=== PATIENT | female | born 1945 | race Caucasian/White ===

== ENCOUNTER 2020-02-09 13:23 | Inpatient (IN) | payer MEDICARE ==
[~2020-02-09] VITALS: Ht 152.4 cm; Wt 88.4 kg
[2020-02-09 14:20] LABS: BASOPHILS ABSOLUTE AUTO 0.07 K/mm3 (0.00-0.23); BASOPHILS PERCENT AUTO 1 % (0-2); EOSINOPHILS ABSOLUTE AUTO 0.26 K/mm3 (0.00-0.68); EOSINOPHILS PERCENT AUTO 3 % (0-6); Hematocrit 31.4 % (33.0-51.0); Hemoglobin 10.5 g/dL (11.5-16.0); IMMATURE GRAN ABSOLUTE AUTO 0.03 K/mm3 (0.00-0.10); IMMATURE GRAN PERCENT AUTO 0 % (0-1); LYMPHOCYTES ABSOLUTE AUTO 2.14 K/mm3 (0.84-5.20); LYMPHOCYTES PERCENT AUTO 20 % (21-46); MONOCYTES ABSOLUTE AUTO 0.73 K/mm3 (0.16-1.47); MONOCYTES PERCENT AUTO 7 % (4-13); Mean Corpuscular HGB 33.7 pg (26.0-34.0); Mean Corpuscular HGB Conc 33.4 g/dL (31.5-36.5); Mean Corpuscular Volume 101 fL (80-100); NEUTROPHILS ABSOLUTE AUTO 7.25 K/mm3 (1.96-9.15); NEUTROPHILS PERCENT AUTO 69 % (41-73); Platelet Count 199 K/mm3 (150-400); RDW Coefficient Variation 13.4 % (11.7-14.2); RDW Standard Deviation 48.8 fL (35.1-46.3); Red Blood Cell Count 3.12 M/mm3 (3.80-5.20); White Blood Cell Count 10.48 K/mm3 (4.00-11.30)
[2020-02-09 14:34] LABS: Albumin, Blood 3.3 g/dL (3.4-5.0); Albumin/Globulin Ratio 0.8 (0.8-1.8); Bilirubin, Total 0.4 mg/dL (0.1-1.0); Bun/Creatinine Ratio 11.4 (12.0-20.0); Calcium, Blood 9.7 mg/dL (8.5-10.1); Creatinine, Blood 4.11 mg/dL (0.40-1.00); Globulin, Blood 4.4 g/dL (2.2-4.0); Potassium, Blood 4.7 mmol/L (3.5-5.5); Total Protein, Blood 7.7 g/dL (6.4-8.2)
[2020-02-09] MEDS ORDERED: ATOR10 PO (15:11)
[2020-02-09] MEDS ORDERED: FUROSEMIDE40 MG PO (15:11)
[2020-02-09] MEDS ORDERED: Potassium Chlo20 ME1 PO (15:12)
[2020-02-09] MEDS ORDERED: CLON.1 PO (15:12)
[2020-02-09] MEDS ORDERED: Toprol Xl200 MG PO (15:12)
[2020-02-09] MEDS ORDERED: SPIRONOLACTONE25 MG PO (15:13)
[2020-02-09] MEDS ORDERED: ALLOPURINOL100 M1 PO (15:13)
[2020-02-09] MEDS ORDERED: BASAGLAR K100 UNIT/1 PO (15:16)
[2020-02-09] MEDS ORDERED: AMLO10 PO (15:17)
[2020-02-09 15:32] LABS: Phosphorus, Blood 5.6 mg/dL (2.5-4.9)
[2020-02-09] MEDS ORDERED: ASCO500 PO (15:57)
[2020-02-09] MEDS ORDERED: THERA1 EACH PO (15:58)
[2020-02-09] MEDS ORDERED: CALCIUM PO (15:58)
[2020-02-09] MEDS ORDERED: Fish Oil 10001000 MG PO (15:58)
[2020-02-09] MEDS ORDERED: VITAMIN D350 MCG PO (15:58)
--- NOTE | 2020-02-09 16:36 | NUR ---
CALLED DR RODRIGUEZ RE CONSULT. HE STATES CAN DIALYSIS TODAY OR TOMORROW DEPENDING ON AVAIL. CALLED DIALYSIS ROOM, NA.
--- NOTE | 2020-02-09 18:23 | NUR ---
PT ADMIT HERE 1655. ADMIT DONE. PT A/O PLEASANT. COOP. DENIES PAIN. H/R REG, NO MURMER NOTED. PLACED TELE. NSR AT 65. LUNGS CLEAR RESP EASY, UNLABORED ON R.A./ BT X4 LAST BM THIS AM. VOIDS PER BATHROOM. 1 ASST. PENDING NEW DIALYSIS TOMORROW AM. FISTULA IN RT F/A. BED IN LOW POSITION, CALL LITE IN REACH, CALLS APPROP
--- NOTE | 2020-02-09 19:08 | NUR ---
IV IN RT FORE ARM . DR RODRIGUEZ IN TO ROOM. ORDERED TO REPLACE TO LEFT ARM. DONE.
--- NOTE | 2020-02-09 20:07 | NUR ---
RESPIRATORY: PATIENT IS SOB WITH ACTIVITY, SAT IS 79% ON RA WHEN BACK IN BED. 2L NC IS PLACED, SAT INCREASES TP 100% WITHIN 5 MINUTES. 02 IS NOW ON 1L NC, SAT IS 99%. PATIENT INSTRUCTED TO LEAVE 02 ON WHEN AMBULATING TO BATHROOM.
[2020-02-10 05:54] LABS: BASOPHILS ABSOLUTE AUTO 0.05 K/mm3 (0.00-0.23); BASOPHILS PERCENT AUTO 0 % (0-2); EOSINOPHILS ABSOLUTE AUTO 0.14 K/mm3 (0.00-0.68); EOSINOPHILS PERCENT AUTO 1 % (0-6); Hematocrit 32.9 % (33.0-51.0); Hemoglobin 10.9 g/dL (11.5-16.0); IMMATURE GRAN ABSOLUTE AUTO 0.05 K/mm3 (0.00-0.10); IMMATURE GRAN PERCENT AUTO 0 % (0-1); LYMPHOCYTES ABSOLUTE AUTO 1.98 K/mm3 (0.84-5.20); LYMPHOCYTES PERCENT AUTO 18 % (21-46); MONOCYTES ABSOLUTE AUTO 0.83 K/mm3 (0.16-1.47); MONOCYTES PERCENT AUTO 7 % (4-13); Mean Corpuscular HGB 33.2 pg (26.0-34.0); Mean Corpuscular HGB Conc 33.1 g/dL (31.5-36.5); Mean Corpuscular Volume 100 fL (80-100); Mean Platelet Volume 10.4 fL (9.1-12.4); NEUTROPHILS ABSOLUTE AUTO 8.18 K/mm3 (1.96-9.15); NEUTROPHILS PERCENT AUTO 73 % (41-73); Platelet Count 189 K/mm3 (150-400); RDW Coefficient Variation 13.5 % (11.7-14.2); RDW Standard Deviation 48.8 fL (35.1-46.3); Red Blood Cell Count 3.28 M/mm3 (3.80-5.20); White Blood Cell Count 11.23 K/mm3 (4.00-11.30)
[2020-02-10 06:12] LABS: Albumin, Blood 3.3 g/dL (3.4-5.0); Albumin/Globulin Ratio 0.7 (0.8-1.8); Bilirubin, Total 0.5 mg/dL (0.1-1.0); Calcium, Blood 9.7 mg/dL (8.5-10.1); Creatinine, Blood 4.1 mg/dL (0.40-1.00); Globulin, Blood 4.6 g/dL (2.2-4.0); Potassium, Blood 4.4 mmol/L (3.5-5.5); Total Protein, Blood 7.9 g/dL (6.4-8.2)
--- NOTE | 2020-02-10 06:52 | NUR ---
SHIFT SUMMARY: PATIENT IS A&OX4, UP INDEPENDANTLY TO THE BATHROOM. SOB WITH ACTIVITY AND DESATED TO 79% ON RA AFTER AMBULATION. 02 WAS STARTED AT 2 L NC SAT RECOVERS TO 100%. O2 IS NOW ON 1L, PATIENT IS ABLE TO MAINTAINS SATS ABOVE 90% WITH ACTIVITY WITH 02 ON. BP WAS ELEVATED, PATIENT IS ASYMPTOMATIC, IN HYDRALAZINE WAS GIVEN, WILL MONITOR BP.
--- NOTE | 2020-02-10 18:15 | NUR ---
BP 1610 170/87 P 76 HYDRAL 10 MG 1623 RECHECK BP 1640 174/82 P 76 RECHECK BP 1420 174/77 P 75 HYDRAL 10 MG 1730 RECHECK BP 1800 135/79 P 79
--- NOTE | 2020-02-10 18:26 | NUR ---
PT QUITE PLEASANT TODDAY. DID NOT RECEIVE DIALYSIS TODAY. UNABLE TO ACCESS FISTULA. CHRISTINA CONSULTED DR RODRIGUEZ. TO PLACE PERMACATH TOMORROW AM. NPO MIDNITE. EXPECT DIALYSIS AFTER PLACED. PT HAD EPISODE OF HIGH BP. TREATED WITH HYDRALAZINE X2 THIS AFT. BACK TO WNL. PT STATES NOT VERY HUNGRY THIS NOON OR DINNER. ENCOURAGED TO EAT SOME. NO OTHER CONCERNS AT THIS TIME. BED IN LOW POSITION,C ALL LITE IN REACH, CALLS APPROP
[2020-02-11 06:15] LABS: BASOPHILS ABSOLUTE AUTO 0.04 K/mm3 (0.00-0.23); BASOPHILS PERCENT AUTO 0 % (0-2); EOSINOPHILS ABSOLUTE AUTO 0.03 K/mm3 (0.00-0.68); EOSINOPHILS PERCENT AUTO 0 % (0-6); Hematocrit 31.7 % (33.0-51.0); Hemoglobin 10.6 g/dL (11.5-16.0); IMMATURE GRAN PERCENT AUTO 1 % (0-1); LYMPHOCYTES ABSOLUTE AUTO 1.47 K/mm3 (0.84-5.20); LYMPHOCYTES PERCENT AUTO 16 % (21-46); MONOCYTES ABSOLUTE AUTO 0.81 K/mm3 (0.16-1.47); MONOCYTES PERCENT AUTO 9 % (4-13); Mean Corpuscular HGB 33.4 pg (26.0-34.0); Mean Corpuscular HGB Conc 33.4 g/dL (31.5-36.5); Mean Corpuscular Volume 100 fL (80-100); Mean Platelet Volume 10.5 fL (9.1-12.4); NEUTROPHILS ABSOLUTE AUTO 6.96 K/mm3 (1.96-9.15); NEUTROPHILS PERCENT AUTO 74 % (41-73); NRBC ABSOLUTE 0.03 K/mm3 (0.00-0.02); NRBC Auto 0.3 /100 WBC (0.0-0.2); Platelet Count 180 K/mm3 (150-400); RDW Coefficient Variation 13.7 % (11.7-14.2); Red Blood Cell Count 3.17 M/mm3 (3.80-5.20); White Blood Cell Count 9.41 K/mm3 (4.00-11.30)
[2020-02-11 06:40] LABS: Magnesium, Blood 2.8 mg/dL (1.6-2.4)
[2020-02-11 06:42] LABS: Anion Gap 10 mmol/L (6-16); Blood Urea Nitrogen 50 mg/dL (8-24); Bun/Creatinine Ratio 12.1 (12.0-20.0); CO2, Blood 22 mmol/L (21-32); Calcium, Blood 9.5 mg/dL (8.5-10.1); Chloride, Blood 109 mmol/L (98-108); Creatinine, Blood 4.13 mg/dL (0.40-1.00); Glomerular Filtration Rate 11 (60-); Glucose, Blood 134 mg/dL (70-99); Phosphorus, Blood 5.1 mg/dL (2.5-4.9); Potassium, Blood 4.3 mmol/L (3.5-5.5); Sodium, Blood 141 mmol/L (136-145)
--- NOTE | 2020-02-11 09:14 | NUR ---
PT TO DAY SURGERY FOR PERMACATH PLACEMENT.
--- NOTE | 2020-02-11 09:47 | NUR ---
02/11/20 0947 Mei Tadeo PT ON SCHEDULED ANTIBIOTICS
--- NOTE | 2020-02-11 11:22 | NUR ---
PT ARRIVED BACK TO ROOM 330 VIA BED. PT SLEEPING BUT AWAKES TO VERBAL STIMULI. PT DENIES ANY COMPLAINTS. PERMACATH TO RIGHT CHEST WALL, DRESSING X2 C/D/I WITH SMALL AMOUNT OF RESIDUAL BLEEDING NOTED UNDER DRESSING. VSS.
--- NOTE | 2020-02-11 13:03 | NUR ---
PT TO DIALYSIS VIA W/C, SPOUSE AT BEDSIDE.
--- NOTE | 2020-02-11 16:26 | NUR ---
SHIFT SUMMARY- PT A/OX4, INDEP UP TO BATHROOM. PT DENIES ANY COMPLAINTS T/O THE DAY. PERMACATH PLACED TO RIGHT CHEST WALL TODAY AND DIALYSIS COMPLETED, TOLERATED WELL. LS CLEAR, ON 2L N/C. TELE SR AY 83, TELE DC'D THIS SHIFT. TRACE BLE EDEMA AND 2+ LEFT ARM EDEMA NOTED, LEFT ARM ELEVATED ON PILLOWS. NO OTHER ACUTE CHANGES THIS SHIFT.
--- NOTE | 2020-02-12 05:16 | NUR ---
SHIFT SUMMARY PT IS A 74 Y/O MALE, ADMITTED FOR ESRD. PT IS A&O X 4, AND INDEPENDENT IN THE ROOM. SHE SLEPT WELL THROUGH THE NIGHT, WITH NO COMPLAINTS OF PAIN, NAUSEA OR SOB. PT HAD A R CHEST WALL PERMACATH PLACED YESTERDAY FOR DIALYSIS. THIS AM, WHEN WOKEN FOR VITALS, THE PT'S DRESSING AT THE SITE WAS SATURATED WITH BLOOD, AND PT HAD BLED ONTO HER NECK AND CHEST. SITE APPEARED TO HAVE STOPPED ACTIVELY BLEEDING ONCE CLEANED UP. THE CHARGE NURSE, NURSING GEOGRAPHIC ANALYST, AND ICU NURSING GEOGRAPHIC ANALYST MARTÍN WERE CONSULTED. THE DRESSING WAS REINFORCED WITH GAUZE AND PRESSURE TAPE. WILL PASS ON TO DAY SHIFT TO NOTIFY SURGEON PER ANURAG RESENDIZ'S RECOMMENDATION. PT'S VITAL SIGNS STABLE, THOUGH BP WAS ELEVATED IN THE 170S SYSTOLICALLY. NO OTHER ACUTE CHANGES IN PT CONDITION NOTED. WILL CONTINUE TO MONITOR AND TREAT PER EMAR UNTIL HAND OFF TO DAY SHIFT RN.
[2020-02-12 05:47] LABS: BASOPHILS ABSOLUTE AUTO 0.01 K/mm3 (0.00-0.23); BASOPHILS PERCENT AUTO 0 % (0-2); EOSINOPHILS PERCENT AUTO 0 % (0-6); Hemoglobin 9.7 g/dL (11.5-16.0); IMMATURE GRAN PERCENT AUTO 1 % (0-1); LYMPHOCYTES ABSOLUTE AUTO 0.67 K/mm3 (0.84-5.20); LYMPHOCYTES PERCENT AUTO 7 % (21-46); MONOCYTES ABSOLUTE AUTO 0.81 K/mm3 (0.16-1.47); MONOCYTES PERCENT AUTO 8 % (4-13); Mean Corpuscular HGB 33.2 pg (26.0-34.0); Mean Corpuscular HGB Conc 32.3 g/dL (31.5-36.5); Mean Platelet Volume 10.3 fL (9.1-12.4); NEUTROPHILS ABSOLUTE AUTO 8.72 K/mm3 (1.96-9.15); NEUTROPHILS PERCENT AUTO 85 % (41-73); Platelet Count 170 K/mm3 (150-400); RDW Coefficient Variation 13.8 % (11.7-14.2); RDW Standard Deviation 51.8 fL (35.1-46.3); Red Blood Cell Count 2.92 M/mm3 (3.80-5.20); White Blood Cell Count 10.31 K/mm3 (4.00-11.30)
[2020-02-12 05:49] LABS: Mean Corpuscular Volume 103 fL (80-100)
[2020-02-12 06:07] LABS: Albumin, Blood 2.8 g/dL (3.4-5.0); Anion Gap 7 mmol/L (6-16); Blood Urea Nitrogen 44 mg/dL (8-24); Bun/Creatinine Ratio 12.3 (12.0-20.0); CO2, Blood 29 mmol/L (21-32); Calcium, Blood 8.7 mg/dL (8.5-10.1); Chloride, Blood 103 mmol/L (98-108); Creatinine, Blood 3.58 mg/dL (0.40-1.00); Glomerular Filtration Rate 13 (60-); Glucose, Blood 201 mg/dL (70-99); Magnesium, Blood 2.7 mg/dL (1.6-2.4); Phosphorus, Blood 4.3 mg/dL (2.5-4.9); Potassium, Blood 4.1 mmol/L (3.5-5.5); Sodium, Blood 139 mmol/L (136-145)
--- NOTE | 2020-02-12 19:11 | NUR ---
SHIFT SUMMARY: NO ACUTE CHANGES TO REPORT THIS SHIFT. PT A&O; CALM AND COOPERATIVE WITH CARE; INDEPENDENT IN ROOM. DIALYSIS PT: A-V FISTULA IN R UA; PERMACATH IN R CHEST; DIALYSIS TODAY-PT TOLERATED WELL. IV ABX CONTINUING. REPORT GIVEN TO ONCOMING RN.
[2020-02-13 02:09] LABS: HEP A AB, IGM Negative (Negative)
--- NOTE | 2020-02-13 04:09 | NUR ---
SHIFT SUMMARY ADMITTED FOR ESRD, NEEDING DIALYSIS. FULL CODE. ALSO FOUND TO POSSIBLY HAVE RT LUNG PNEUMONIA. SHE HAD A PERMACATH PLACED IN HER RT CHEST WALL, HER AV FISTULA IS NOT FUNCTIONING. RENAL DIET, A&O X4. HEPARIN FOR DVT PROPHYLAXIS. THIS SHIFT SHE CONTINUED HER TREND OF HTN, PRN APRESOLINE GIVEN. SHE DID REQUEST ACETAMINOPHEN FOR A HEADACHE, WHICH THE NIGHT HOSPITALIST APPROVED.
[2020-02-13 05:29] LABS: BASOPHILS ABSOLUTE AUTO 0.03 K/mm3 (0.00-0.23); BASOPHILS PERCENT AUTO 0 % (0-2); EOSINOPHILS ABSOLUTE AUTO 0.08 K/mm3 (0.00-0.68); EOSINOPHILS PERCENT AUTO 1 % (0-6); Hematocrit 29.2 % (33.0-51.0); Hemoglobin 9.3 g/dL (11.5-16.0); IMMATURE GRAN ABSOLUTE AUTO 0.11 K/mm3 (0.00-0.10); IMMATURE GRAN PERCENT AUTO 1 % (0-1); LYMPHOCYTES ABSOLUTE AUTO 1.18 K/mm3 (0.84-5.20); LYMPHOCYTES PERCENT AUTO 9 % (21-46); MONOCYTES ABSOLUTE AUTO 1.29 K/mm3 (0.16-1.47); MONOCYTES PERCENT AUTO 10 % (4-13); Mean Corpuscular HGB 33.3 pg (26.0-34.0); Mean Corpuscular HGB Conc 31.8 g/dL (31.5-36.5); Mean Corpuscular Volume 105 fL (80-100); Mean Platelet Volume 10.4 fL (9.1-12.4); NEUTROPHILS ABSOLUTE AUTO 10.76 K/mm3 (1.96-9.15); NEUTROPHILS PERCENT AUTO 80 % (41-73); NRBC ABSOLUTE 0.07 K/mm3 (0.00-0.02); NRBC Auto 0.5 /100 WBC (0.0-0.2); Platelet Count 172 K/mm3 (150-400); RDW Coefficient Variation 13.9 % (11.7-14.2); RDW Standard Deviation 52.2 fL (35.1-46.3); Red Blood Cell Count 2.79 M/mm3 (3.80-5.20); White Blood Cell Count 13.45 K/mm3 (4.00-11.30)
[2020-02-13 05:53] LABS: Albumin, Blood 2.8 g/dL (3.4-5.0); Anion Gap 5 mmol/L (6-16); Blood Urea Nitrogen 34 mg/dL (8-24); CO2, Blood 33 mmol/L (21-32); Calcium, Blood 8.7 mg/dL (8.5-10.1); Chloride, Blood 101 mmol/L (98-108); Creatinine, Blood 2.84 mg/dL (0.40-1.00); Glomerular Filtration Rate 17 (60-); Glucose, Blood 143 mg/dL (70-99); Magnesium, Blood 2.4 mg/dL (1.6-2.4); Potassium, Blood 3.4 mmol/L (3.5-5.5); Sodium, Blood 139 mmol/L (136-145)
--- NOTE | 2020-02-13 10:00 | NUR ---
0745 PATIENT HEART RATE 150, PT REPORTS HEADAHE AND FEELING OF POUNDING IN CHEST. SPOKE WITH DR LONG AND ORDERS RECEIVED. EKG SHOW AFIB WITH RVR, PT PLACED ON TELEMETRY. DISCUSSED WITH PATIENT THAT SHE SHOULD CALL IMMEDIATELY IF ANY CHANGE IN HOW SHE IS FEELING
--- NOTE | 2020-02-13 10:01 | NUR ---
DIALYSIS DUE TO RAPID HR, WE HAVE BEEN ASKED NOT TO DIALYSIS PT TODAY. DR RODRIGUEZ NOTIFIED.
--- NOTE | 2020-02-13 10:31 | NUR ---
SPOKE WITH DR LONG REGARDING PATIENT WITH CONTINUED HIGH HR. ORDERS RECEIVED. NOTIFIED KARSTEN CHOU RN OF ORDERS TO TRANSFER PATIENT TO PCU. SPOKE WITH PATIENT REGARDING TRANSFER PLAN
--- NOTE | 2020-02-13 12:29 | NUR ---
TRANSFERRED TO PCU 3 PER BED ACCOMPANIED BY HER SON.
--- NOTE | 2020-02-13 12:29 | NUR ---
ASSUMED CARE PATIENT TX'D INTO PCU 03 FOR CARDITUNGM GTT
--- NOTE | 2020-02-13 14:23 | NUR ---
HR HAS SLOWED
--- NOTE | 2020-02-13 15:57 | NUR ---
PATIENT CONVERTED TO NSR AT 1252.
--- NOTE | 2020-02-13 15:58 | NUR ---
CARDIZEM GTT STARTED AT 1236
--- NOTE | 2020-02-13 18:35 | NUR ---
HR IN AFIB RVR AGAIN. CARDIZEM TITRATED TO MG/HR. REQUEST TYLENOL FOR HEADACHE
--- NOTE | 2020-02-13 19:04 | NUR ---
RAPID AFIB CONTINUES. PATIENT SLEEPING AT THIS TIME. WILL REPORT TO ONCOMING RN
--- NOTE | 2020-02-13 19:24 | NUR ---
REPORT TO ANURAG TATE. PATIENT FEELS IF HR HAS SLOWED AND HEADACHE IS IMPROVED
[2020-02-14 03:58] LABS: BASOPHILS ABSOLUTE AUTO 0.02 K/mm3 (0.00-0.23); BASOPHILS PERCENT AUTO 0 % (0-2); EOSINOPHILS ABSOLUTE AUTO 0.26 K/mm3 (0.00-0.68); EOSINOPHILS PERCENT AUTO 2 % (0-6); Hematocrit 29.4 % (33.0-51.0); Hemoglobin 9.3 g/dL (11.5-16.0); IMMATURE GRAN ABSOLUTE AUTO 0.09 K/mm3 (0.00-0.10); IMMATURE GRAN PERCENT AUTO 1 % (0-1); LYMPHOCYTES ABSOLUTE AUTO 1.45 K/mm3 (0.84-5.20); LYMPHOCYTES PERCENT AUTO 13 % (21-46); MONOCYTES ABSOLUTE AUTO 1.15 K/mm3 (0.16-1.47); MONOCYTES PERCENT AUTO 10 % (4-13); Mean Corpuscular HGB 33.6 pg (26.0-34.0); Mean Corpuscular HGB Conc 31.6 g/dL (31.5-36.5); Mean Corpuscular Volume 106 fL (80-100); Mean Platelet Volume 10.1 fL (9.1-12.4); NEUTROPHILS ABSOLUTE AUTO 8.51 K/mm3 (1.96-9.15); NEUTROPHILS PERCENT AUTO 74 % (41-73); NRBC ABSOLUTE 0.04 K/mm3 (0.00-0.02); NRBC Auto 0.3 /100 WBC (0.0-0.2); Platelet Count 173 K/mm3 (150-400); RDW Coefficient Variation 14.1 % (11.7-14.2); RDW Standard Deviation 53.5 fL (35.1-46.3); Red Blood Cell Count 2.77 M/mm3 (3.80-5.20); White Blood Cell Count 11.48 K/mm3 (4.00-11.30)
[2020-02-14 04:08] LABS: HBSAG SCREEN Negative (Negative); HEP A AB, IGM Negative (Negative); HEP B CORE AB, IGM Negative (Negative); HEP B CORE AB, TOT Negative (Negative); HEP C VIRUS AB 0.2 (0.0-0.9)
[2020-02-14 04:20] LABS: Albumin, Blood 2.8 g/dL (3.4-5.0); Anion Gap 5 mmol/L (6-16); Blood Urea Nitrogen 37 mg/dL (8-24); Bun/Creatinine Ratio 10.5 (12.0-20.0); CO2, Blood 33 mmol/L (21-32); Calcium, Blood 8.8 mg/dL (8.5-10.1); Chloride, Blood 103 mmol/L (98-108); Creatinine, Blood 3.52 mg/dL (0.40-1.00); Glomerular Filtration Rate 14 (60-); Glucose, Blood 102 mg/dL (70-99); Magnesium, Blood 2.6 mg/dL (1.6-2.4); Phosphorus, Blood 3.6 mg/dL (2.5-4.9); Potassium, Blood 3.5 mmol/L (3.5-5.5); Sodium, Blood 141 mmol/L (136-145)
--- NOTE | 2020-02-14 05:09 | NUR ---
SHIFT SUMMARY HAS RESTED WELL THIS SHIFT. PLACED NEW 20G PIV TO LEFT FA THAT IS NOW INFUSING CARDIZEM AT 10ML/HR AFTER THE PREVIOUS PIV BECAME DISLODGED WHEN SHE WAS TRYING TO GO TO THE BATHROOM WITHOUT ASSISTANCE. REITERATED NEED TO USE CALL RAYA FOR ASSISTANCE WITH AMBULATION, VOICES UNDERSTANDING. DR. RODRIGUEZ AT BEDSIDE TO SEE PT, INFORMED HER THAT SHE WILL BE DIALISED TODAY. RIGHT CW PERMACATH NOTED WITH DRESSING THAT IS C/D/I. RIGHT INNER FA AV FISTULA FWITH GOOD THRILL AND BRUIT NOTED ON THE RADIAL ASPECT ONLY. CONTINENT OF BOWEL AND BLADER, AMBULATES TO BATHROOM. DENIES FURTHER NEEDS OR WANTS AT THIS TIME. SAFETY MEASURES IN PLACE. WILL GIVE HAND OFF TO ONCOMING SHIFT USING SBAR DURING BEDSIDE REPORT.
[2020-02-14] MEDS ORDERED: METO25 PO (16:05)
[2020-02-14] MEDS ORDERED: ELIQUIS5 MG PO (16:05)
[2020-02-14] MEDS ORDERED: ACET325 PO (16:05)
[2020-02-14] MEDS ORDERED: CEFPODOXIME PR100 MG PO (16:06)
[2020-02-14] MEDS ORDERED: DILT30 PO (16:07)
[2020-02-14] MEDS ORDERED: Florastor250 MG PO (16:07)
[2020-02-14] MEDS ORDERED: LISI5 PO (16:07)
[2020-02-14] MEDS ORDERED: SEVEC800 PO (16:08)
--- NOTE | 2020-02-14 17:36 | NUR ---
DISCHARGE INSTRUCTIONS GONE OVER WITH PT AND FAMILY. INSTRUCTED PT THAT I ATTEMPTED TO COORDINATE A FOLLOW UP VISIT, HOWEVER, NEW POLICIES AT CLINIC WILL HAVE THEM CALLING THE PT TO SCHEDULE THE APPOINTMENT. INSTRUCTED PT ON NEW PRESCRIPTIONS AND WHERE TO GET THEM. PT STATED UNDERSTANDING. PT WAS INSTRUCTED OF SCHEDULED DIALYSIS APPOINTMENT TOMORROW AT 1PM. PT BELONGINGS WERE GATHERED AND TRANSPORTED WITH PT. PT WAS ESCORTED OUT BY RN VIA WHEELCHAIR.
== END 2020-02-14 17:30 | disposition home or self-care (01) | DRG 673 ==
LOC: ER 13:23 → MEDS 13:24 → PCU 02-13 12:28
PROVIDERS: Internal Medicine Nephrology; Nurse Practitioner Acute Care; Physician Assistant; Surgery; ADMIT Family Medicine
PROC: 02HV33Z Insertion of Infusion Device into Superior Vena Cava, Percutaneous Approach (ICD-10-PCS; 2020-02-11)
PROC: 5A1D70Z Performance of Urinary Filtration, Intermittent, Less than 6 Hours Per Day (ICD-10-PCS; 2020-02-11)
PROC: 0JH63XZ Insertion of Tunneled Vascular Access Device into Chest Subcutaneous Tissue and Fascia, Percutaneous Approach (ICD-10-PCS; principal; 2020-02-11 09:00)
PROC: 5A1D70Z Performance of Urinary Filtration, Intermittent, Less than 6 Hours Per Day (ICD-10-PCS; 2020-02-12)
PROC: 5A1D70Z Performance of Urinary Filtration, Intermittent, Less than 6 Hours Per Day (ICD-10-PCS; 2020-02-13)
PROC: 5A1D70Z Performance of Urinary Filtration, Intermittent, Less than 6 Hours Per Day (ICD-10-PCS; 2020-02-14)
DX: I12.0 Hypertensive chronic kidney disease with stage 5 chronic kidney disease or end stage renal disease (principal); N18.6 End stage renal disease; J18.9 Pneumonia, unspecified organism; N25.81 Secondary hyperparathyroidism of renal origin; N17.9 Acute kidney failure, unspecified; E11.22 Type 2 diabetes mellitus with diabetic chronic kidney disease; Z79.4 Long term (current) use of insulin; I48.0 Paroxysmal atrial fibrillation; Z79.01 Long term (current) use of anticoagulants; E66.9 Obesity, unspecified; D63.1 Anemia in chronic kidney disease; D50.0 Iron deficiency anemia secondary to blood loss (chronic); Z68.37 Body mass index [BMI] 37.0-37.9, adult
CPT/HCPCS: 36415; 71045; 71046; 71250; 80053; 80069; 80074; 82947; 83735; 83880; 84100; 84145; 85025; 86317; 86704; 86709; 93005; 93010; 96365; 96366; 96372; 96375; 99285-25; A9270; A9270-GY; C1750; G0378; J0360; J0456; J0696; J1100; J1644; J2250; J2405; J2704; J7050

== ENCOUNTER 2020-03-05 05:59 | Inpatient (IN) | payer MEDICARE ==
[~2020-03-05] VITALS: Ht 152.4 cm; Wt 81.6 kg
[~2020-03-05 05:59] MED LIST: ACET325 PO; ALLOPURINOL100 M1 PO; AMLO10 PO; ASCO500 PO; ATOR10 PO; BASAGLAR K100 UNIT/1 PO; CALCIUM PO; CEFPODOXIME PR100 MG PO; CLON.1 PO; DILT30 PO; ELIQUIS5 MG PO; FUROSEMIDE40 MG PO; Fish Oil 10001000 MG PO; Florastor250 MG PO; LISI5 PO; METO25 PO; Potassium Chlo20 ME1 PO; SEVEC800 PO; SPIRONOLACTONE25 MG PO; THERA1 EACH PO; Toprol Xl200 MG PO; VITAMIN D350 MCG PO
[2020-03-05 06:21] LABS: BASOPHILS ABSOLUTE AUTO 0.02 K/mm3 (0.00-0.23); BASOPHILS PERCENT AUTO 0 % (0-2); EOSINOPHILS ABSOLUTE AUTO 0.06 K/mm3 (0.00-0.68); EOSINOPHILS PERCENT AUTO 1 % (0-6); Hematocrit 25.2 % (33.0-51.0); Hemoglobin 8.6 g/dL (11.5-16.0); IMMATURE GRAN ABSOLUTE AUTO 0.03 K/mm3 (0.00-0.10); IMMATURE GRAN PERCENT AUTO 0 % (0-1); LYMPHOCYTES ABSOLUTE AUTO 1.48 K/mm3 (0.84-5.20); LYMPHOCYTES PERCENT AUTO 21 % (21-46); MONOCYTES ABSOLUTE AUTO 0.51 K/mm3 (0.16-1.47); MONOCYTES PERCENT AUTO 7 % (4-13); Mean Corpuscular HGB 33.3 pg (26.0-34.0); Mean Corpuscular HGB Conc 34.1 g/dL (31.5-36.5); Mean Corpuscular Volume 98 fL (80-100); Mean Platelet Volume 10.7 fL (9.1-12.4); NEUTROPHILS ABSOLUTE AUTO 5.07 K/mm3 (1.96-9.15); NEUTROPHILS PERCENT AUTO 71 % (41-73); Platelet Count 174 K/mm3 (150-400); RDW Coefficient Variation 12.6 % (11.7-14.2); Red Blood Cell Count 2.58 M/mm3 (3.80-5.20); White Blood Cell Count 7.17 K/mm3 (4.00-11.30)
[2020-03-05 06:46] LABS: Alanine Aminotransfer (ALT/SGP 21 U/L (12-78); Albumin, Blood 2.7 g/dL (3.4-5.0); Albumin/Globulin Ratio 0.8 (0.8-1.8); Alk Phos 77 U/L (50-136); Anion Gap 5 mmol/L (6-16); Aspartate Aminotrans (AST/SGOT 19 U/L (12-37); Bilirubin, Total 0.5 mg/dL (0.1-1.0); Blood Urea Nitrogen 32 mg/dL (8-24); Bun/Creatinine Ratio 6.5 (12.0-20.0); CO2, Blood 34 mmol/L (21-32); Calcium, Blood 9.6 mg/dL (8.5-10.1); Chloride, Blood 96 mmol/L (98-108); Creatinine, Blood 4.93 mg/dL (0.40-1.00); Globulin, Blood 3.4 g/dL (2.2-4.0); Glomerular Filtration Rate 9 (60-); Glucose, Blood 229 mg/dL (70-99); Magnesium, Blood 2.6 mg/dL (1.6-2.4); Potassium, Blood 4.3 mmol/L (3.5-5.5); Sodium, Blood 135 mmol/L (136-145); Total Protein, Blood 6.1 g/dL (6.4-8.2); Troponin I <0.015 ng/mL (0.000-0.040)
[2020-03-05] MEDS ORDERED: Amiodarone HCl200 MG PO (07:46)
[2020-03-05] MEDS ORDERED: CARV3.125 PO (07:49)
[2020-03-05] MEDS ORDERED: METO100ER PO (07:51)
[2020-03-05] MEDS ORDERED: METO2.5 PO (07:54)
[2020-03-05 08:35] LABS: Free Thyroxine 1.5 ng/dL (0.70-1.60)
[2020-03-05 08:38] LABS: Thyroid Stimulating Hormone 1.4 uIU/mL (0.360-4.800)
[2020-03-05 09:41] LABS: Source, Urine Catheter
[2020-03-05 09:55] LABS: Bilirubin, Urine Neg (Neg); Blood, Urine 2+ (Neg); Glucose Qualitative, Urine 1+ (Neg); Ketones, Urine Neg (Neg); Leukocyte Esterase, Urine Neg (Neg); Nitrite, Urine Neg (Neg); Protein, Urine 4+ (Neg); Urobilinogen, Urine NORM (Normal)
[2020-03-05 10:01] LABS: Appearance, Urine Clear (Clear); Color, Urine Yellow (P-Yellow)
[2020-03-05 10:04] LABS: Squamous Epithelial Cells Many /hpf (Few)
[2020-03-05 10:05] LABS: Renal Epithelial Few /hpf (0-Rare); Transitional Epithelial Cells Few /hpf (0-Rare)
--- NOTE | 2020-03-05 10:07 | NUR ---
ADMIT PT ARRIVED TO ICU 11 AT 0840 VIA ER BED. PT IS UNRESPONSIVE AT THIS TIME, PUPILS FIXED, EYES WANDERING. HR 30'S, SBP 70'S. PHYSIOTHERAPY AIDE ALMA ROSA ROSE AND DR MARCUS AT BEDSIDE. NEW ORDERS RECIEVED, DOPAMINE GTT STARTED AT 10 MCG/KG/MIN. IMMEDIATE INCREASE IN HR TO 50'S NOTED. PT ON 4L O2 NC. SYED TEMP PROBE INSERTED AT THIS TIME, UA AND U TOX SENT. PT TAKEN TO CT SCAN AND TOLERATED WELL. WILL CONTINUE TO MONITOR.
[2020-03-05 10:08] LABS: Bacteria Few /hpf
[2020-03-05 10:09] LABS: Red Blood Cells, Urine 25-50 /hpf (0-2)
[2020-03-05 10:11] LABS: U Amphetamine Screen Not Detected; U Barbituate Screen Not Detected; U Benzodiazapine Screen Not Detected; U Buprenorphine Screen Not Detected; U Cannabinoids Screen Not Detected; U Cocaine Screen Not Detected; U Methadone Screen Not Detected; U Methamphetamine Screen Not Detected; U Opiates Screen Not Detected; U Oxycodone Screen Not Detected; U Phencyclidine Screen Not Detected; U Propoxyphene Screen Not Detected
[2020-03-05] MEDS ORDERED: METO25 PO (11:09)
[2020-03-05] MEDS ORDERED: LOSA50 PO (11:14)
--- NOTE | 2020-03-05 11:15 | NUR ---
UPDATE TO SPOUSE PT SPOUSE CALLED AND UPDATED TO CURRENT CONDITION AND PLAN OF CARE. OBTAINED CONSENT FROM PT TO DO PICC LINE AT THIS TIME.
[2020-03-05] MEDS ORDERED: Calcium +D & M1 EACH PO (11:17)
[2020-03-05 11:19] LABS: Base Excess Venous 6 mmol/L; Bicarbonate Venous 29.3 mmol/L (24.0-30.0); PCO2 Venous 43.9 mmHg (38-42); PO2 Venous 130 mmHg (38-42); pH Blood Venous 7.44 (7.34-7.37)
[2020-03-05 12:02] LABS: Bun/Creatinine Ratio 7.5 (12.0-20.0); Creatinine, Blood 4.79 mg/dL (0.40-1.00); Potassium, Blood 3.7 mmol/L (3.5-5.5)
[2020-03-05 12:27] LABS: PCO2 Venous 53.9 mmHg (38-42); pH Blood Venous 7.37 (7.34-7.37)
[2020-03-05 12:28] LABS: Base Excess Venous 6.3 mmol/L; Bicarbonate Venous 29.2 mmol/L (24.0-30.0); PO2 Venous 61.2 mmHg (38-42)
--- NOTE | 2020-03-05 15:18 | NUR ---
IMPROVED MENTATION PT MORE AWAKE AND IS SPEAKING IN SHORT SENTENCES. VITAL SIGNS IMPROVING, DOPAMINE BEING TITRATED DOWN. CHIEF OPTOMETRY SERVICE ALMA ROSA ROSE ROUNDED ON PT. NO NEW ORDERS AT THIS TIME. WILL CONTINUE TO MONITOR.
[2020-03-05 15:39] LABS: Adenovirus Not Detected (NOT DETECT); Coronavirus 229E Not Detected (NOT DETECT); Coronavirus HKU1 Not Detected (NOT DETECT); Coronavirus NL63 Not Detected (NOT DETECT); Coronavirus OC43 Not Detected (NOT DETECT); Human Metapneumovirus Not Detected (NOT DETECT); Human Rhinovirus/Enterovirus Not Detected (NOT DETECT)
[2020-03-05 15:40] LABS: Bordetella pertussis Not Detected (NOT DETECT); Chlamydophila pneumoniae Not Detected (NOT DETECT); Influenza A/2009-H1 Not Detected (NOT DETECT); Influenza A/H1 Not Detected (NOT DETECT); Influenza A/H3 Not Detected (NOT DETECT); Influenza B Not Detected (NOT DETECT); Mycoplasma pneumoniae Not Detected (NOT DETECT); Parainfluenza Virus 1 Not Detected (NOT DETECT); Parainfluenza Virus 2 Not Detected (NOT DETECT); Parainfluenza Virus 3 Not Detected (NOT DETECT); Parainfluenza Virus 4 Not Detected (NOT DETECT); Respiratory Syncytial Virus Not Detected (NOT DETECT)
--- NOTE | 2020-03-05 17:59 | NUR ---
SHIFT SUMMARY PT HAS IMPROVED GREATLY THIS SHIFT. PT CONTINUES TO BE MORE ALERT AND TALKATIVE THIS AFTERNOON. SPEECH IS NON SENSICAL WITH SOME APPROPRIATE WORDS. PT REMAINS ON 4L O2 NC, NASAL TRUMPET REMOVED. PT HR REMAINS BRADYCARDIC IN THE 40-50'S ALTERNATING BETWEEN SINUS AND JUNCTIONAL. BP STABLE. DOPAMINE TITRATED DOWN TO 4 MCG/KG/MIN. PICC TO JUANJO IS C/D/I. PT RECIEVING DIALYSIS AT BEDSIDE AT THIS TIME. DIALYSIS CATH REMAINS C/D/I. SYED TEMP PROBE REMAINS C/D/I WITH 30 ML URINE OUTPUT THIS SHIFT. WOUNDS REMAIN UNCHANGED, SEE PHOTOS IN CHART. PT IS FIDGETING/RESTLESS IN BED. WILL CONTINUE TO MONITOR AND REPORT OFF TO ONCOMING RN.
--- NOTE | 2020-03-05 18:04 | NUR ---
Echocardiogram completed by Albania Palmer.
--- NOTE | 2020-03-05 20:00 | NUR ---
ASSUMED CARE OF PT AT 1915. REPORT RECEIVED. PT PRESENTS IN BED. TALKING IN BROKEN SENTENCES AND DOES NOT KEEP ON TOPIC OF HER CONVERSATION. PT IN NO APPARENT DISTRESS TO NOTE. DOPAMINE AT 6 MCG'S/KG/MIN. PT MAINTAINS WILL REVIEW CHART AND PLAN OF CARE FOR THIS PT.
--- NOTE | 2020-03-06 00:15 | NUR ---
PT CONTINUES WITH HAVING SOME HALLUCINATIONS. BELIEVES SHE IS SEEING CATS IN HER ROOM. ALSO SPEAKING TO PERSONS NOT PRESENT. INTERESTINGLY TO NOTE: PT WAS TALKING AND STOPPED MID SENTENCE AND HAD VACANT STARE. PT DID NOT RESPOND TO VERBAL OR TACTILE STIMULI. PT DOES NOT RESPOND TO PENLIGHT WITH BLINKING OF HER EYE. DID HAVE PUPLIS RESPOND TO LIGHT. THIS EVEN LASTED APPROXIMATELY 2 MINUTES IN WHAT APPEARED OR MIMICKED A ABSENCE SEIZURE. VSS REMAINED STABLE DURING THIS TIME. PT CONTINUES ON DOPAMINE DRIP AT 2 MCG'S. WILL ATTEMPT TO WEAN TO OFF.
[2020-03-06 04:23] LABS: BASOPHILS ABSOLUTE AUTO 0.03 K/mm3 (0.00-0.23); BASOPHILS PERCENT AUTO 0 % (0-2); EOSINOPHILS PERCENT AUTO 1 % (0-6); Hematocrit 21.8 % (33.0-51.0); Hemoglobin 7.4 g/dL (11.5-16.0); IMMATURE GRAN ABSOLUTE AUTO 0.03 K/mm3 (0.00-0.10); IMMATURE GRAN PERCENT AUTO 0 % (0-1); LYMPHOCYTES ABSOLUTE AUTO 1.46 K/mm3 (0.84-5.20); LYMPHOCYTES PERCENT AUTO 16 % (21-46); MONOCYTES ABSOLUTE AUTO 0.75 K/mm3 (0.16-1.47); MONOCYTES PERCENT AUTO 8 % (4-13); Mean Corpuscular HGB 33.3 pg (26.0-34.0); Mean Corpuscular HGB Conc 33.9 g/dL (31.5-36.5); Mean Corpuscular Volume 98 fL (80-100); Mean Platelet Volume 10.7 fL (9.1-12.4); NEUTROPHILS ABSOLUTE AUTO 6.73 K/mm3 (1.96-9.15); NEUTROPHILS PERCENT AUTO 74 % (41-73); Platelet Count 169 K/mm3 (150-400); RDW Coefficient Variation 12.7 % (11.7-14.2); RDW Standard Deviation 45.2 fL (35.1-46.3); Red Blood Cell Count 2.22 M/mm3 (3.80-5.20)
[2020-03-06 04:41] LABS: Albumin, Blood 2.3 g/dL (3.4-5.0); Albumin/Globulin Ratio 0.7 (0.8-1.8); Bilirubin, Total 0.4 mg/dL (0.1-1.0); Bun/Creatinine Ratio 6.2 (12.0-20.0); Calcium, Blood 9.2 mg/dL (8.5-10.1); Creatinine, Blood 3.85 mg/dL (0.40-1.00); Globulin, Blood 3.1 g/dL (2.2-4.0); Magnesium, Blood 2.2 mg/dL (1.6-2.4); Phosphorus, Blood 3.7 mg/dL (2.5-4.9); Potassium, Blood 4.6 mmol/L (3.5-5.5); Total Protein, Blood 5.4 g/dL (6.4-8.2)
--- NOTE | 2020-03-06 05:27 | NUR ---
PT HAS NOT BEEN ABLE TO SLEEP THIS NIGHT. HAS BEEN SPEAKING TO HERSELF AND OTHERS THAT ARE NOT PRESENT IN HER ROOM. PT VERBALIZES HALLUCINATIONS OF CATS AND PEOPLE IN HER ROOM. HAS REMAINED PLEASANTLY CONFUSED. NEEDS TO BE REMINDED THAT SHE HAS A CATHETER. HAS ATTEMPTED TO GET OUT OF BED SEVERAL TIMES THIS SHIFT WITHOUT REQUESTING ASSISTANCE. BED ALARM ACTIVE FOR PT'S SAFETY. HAVE ATTEMPTED TO TITRATED DOPAMINE TO OFF. UNFORTUNATELY BLOOD PRESSURES DROP WHEN TURNED OFF. PT CURRENTLY TO 2 MCG/KG/MIN. WILL CONTINUE TO MONITOR PT, AND WILL REPORT OFF TO ONCOMING RN.
--- NOTE | 2020-03-06 08:00 | NUR ---
Received report from Mark OSBORN. Patient supine in bed with HOB at 20 degrees. She is alert and mnostly oriented but and random thoughts and statements that are bizzare and confusing. Her called and received update and was able to to talk with her on the phone. She is on 3 L O2 via NC and is at 99% sats. She remains off Dopamine and HR 68 and 147/77 MAP >65.. She has PICC line to JUANJO dressing changed last shift and has small amount of bleeding from being on Eliquis. She has 18Fr Major in place and draining dark yellow urine small amounts.
--- NOTE | 2020-03-06 09:24 | NUR ---
Dialysis is here and is ready to start. She tolerated PO am meds and did her own am care. She had poor appetite and states she eayts very little. She still make odd comments and realizes she is doing it and states dont worry im a little crazy and is very pleasant about it. VSS See EMR.
--- NOTE | 2020-03-06 13:03 | NUR ---
Patient just finished dialysis and had 1500ml off. Lexus cgave her lunch and is working on. She is now PCU status after talking with Dr Olivares and Dr Gonzalez. No changes in Neuro or O2.
[2020-03-06 13:04] LABS: Vancomycin, Random 11.4 ug/mL
--- NOTE | 2020-03-06 15:00 | NUR ---
Report given to Deb OSBORN. Patient CBG 161 and no coverage was needed. [facility] and pushed patient to PCU 10. Deb OSBORN in room and reviewed report material. All personal belonging taken over after patient transfered.
--- NOTE | 2020-03-06 18:27 | NUR ---
TRANSFER NOTE RECEIVED REPORT FROM ANURAG JAIME IN ICU. PT TO ROOM AT 1443 IN RECLINER. PT ORIENTED TO ROOM AND CALL LIGHT. CALLS APPROPRIATELY. PT A&Ox2; NONSENSICAL SPEECH NOTED. PT 1 PERSON ASSIST IN ROOM. SOB WITH EXERTION, 3L O2 VIA NC SPO2 >92%. PT DENIES PAIN, CHEST PRESSURE AND DIZZINESS. PT REPORTS "MILD" NAUSEA; DENIES NEED FOR MEDCATION. VSS; HELD MIDODRINE THIS PM DUE TO BP. CALLED DR MTZ TO CLARIFY ORDERS FOR BLOOD GLUCOSE AND INSULIN Q6; NEW ORDERS FOR ACHS. NO OTHER ACUTE CHANGES NOTED. WILL CONTINUE TO MONITOR UNITL REPORT GIVEN TO ONCOMING RN.
[2020-03-07 03:52] LABS: Hematocrit 25.2 % (33.0-51.0); Hemoglobin 8.7 g/dL (11.5-16.0)
[2020-03-07 04:09] LABS: Albumin, Blood 2.4 g/dL (3.4-5.0); Anion Gap 5 mmol/L (6-16); Blood Urea Nitrogen 21 mg/dL (8-24); Bun/Creatinine Ratio 6.6 (12.0-20.0); CO2, Blood 30 mmol/L (21-32); Calcium, Blood 8.7 mg/dL (8.5-10.1); Chloride, Blood 99 mmol/L (98-108); Creatinine, Blood 3.19 mg/dL (0.40-1.00); Glomerular Filtration Rate 15 (60-); Glucose, Blood 112 mg/dL (70-99); Magnesium, Blood 2.1 mg/dL (1.6-2.4); Phosphorus, Blood 3.2 mg/dL (2.5-4.9); Sodium, Blood 134 mmol/L (136-145)
--- NOTE | 2020-03-07 04:43 | NUR ---
PT ALERT AND ORIENTED TO SELF; IS ABLE TO DISCUSS PAST CAREER AND STATES SHE HAS LIVED IN W/ STAFF; PLEASANT & COMPLIANT W/ CARE; GIGGLES TO SELF AT TIMES AND TALKS ABOUT VIVID DREAMS; VSS; SINUS NIR NOTED ON TELE W/ HR MID 50'S; DENIES CHEST PAIN; O2 SATS >93 ON 2L NC; SLEPT WELL IN BETWEEN INTERVENTIONS; CURRENTLY SLEEPING W/ TV ON; CALL LIGHT IN REACH; BED IN LOWEST POSITION; WILL CONTINUE TO MONITOR CLOSELY UNTIL HAND OFF TO DAY SHIFT RN.
--- NOTE | 2020-03-07 08:43 | NUR ---
AM NOTE... ASSUMED CARE OF PT APROX 0700. PT IS A&OX3 WITH MOMENTS OF CONFUSION. PT'S VS STABLE AT THIS TIME. DIALYSIS PORT TO THE RIGHT UPPER CHEST WALL IS C/D/I WITH SMALL RED AREA AROUND THE INSERTION SITE. SYED IS IN PLACE, AND DRAINING TO GRAVITY. 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 PT WILL HAVE DIALYSIS TODAY WITH TRANSFUSION OF 1UNIT PRBCS. CALL LIGHT IN REACH WILL CONTINUE TO MONITOR.
[2020-03-07 13:46] LABS: Vancomycin, Random 15.2 ug/mL
--- NOTE | 2020-03-07 16:35 | NUR ---
SHIFT SUMMARY PCU TRANSFER THIS AFTERNOON. PATIENT DENIES PAIN, NAUSEA, AND SHORTNESS OF BREATH. PATIENT ORIENTED TO ROOM. PATIENT UP SBA TO BSC/CHAIR. PATIENT PLEASANT AND COOPERATIVE BUT FORGETFUL. CALL LIGHT IN REACH.
--- NOTE | 2020-03-08 03:44 | NUR ---
THE PATIENT'S CALLED WITH CONCERNS HE STATES THAT HIS IS ABNORMALLY DRILLING CONTRACTOR, AND HER PERSONALITY IS COMPLETELY CHANGED. HE STATES THAT SHE IS CONFUSED MORE THAN NORMAL. HE IS ALSO AFRAID TO TAKE OVER HER MEDICATIONS WITHOUT SOMEONE TO TEACH HIM HOW TO DO IT. HE IS VERY OVERWHELMED WHEN THINKING ABOUT LEARNING HOW TO CARE FOR HER, HE REQUESTS HELP & TEACHING. HE IS CERTAIN SHE TOOK HER MEDICATIONS WRONG, WHICH LED TO THIS ADMIT AND HE DOES NOT TRUST HER ANY LONGER TO MANAGE HER OWN MEDICATIONS.
--- NOTE | 2020-03-08 04:47 | NUR ---
PERIOPERATIVE TECH CALLED PT BRIEFLY IN AND OUT OF AFIB FOR LAST 20 MINUTES. RATE: AFIB @ 90'S-100'S. NOW BACK IN NSR @ 80 BPM. PT HAS A HX OF AFIB. TELEMETRY INFORMS ME OF ONE 4 SECOND PAUSE, RHYTHM STRIPS IN CHART. CHARGE INFORMED. NO S/SX REPORTED BY PATIENT, PATIENT IS ALERT AND AWAKE. WILL CONTINUE TO MONITOR AND CALL HOSPITALIST IF PAUSE OCCURS AGAIN. VS WNL.
[2020-03-08 05:01] LABS: Hematocrit 31.3 % (33.0-51.0); Hemoglobin 10.7 g/dL (11.5-16.0)
[2020-03-08 05:30] LABS: Albumin, Blood 2.8 g/dL (3.4-5.0); Anion Gap 7 mmol/L (6-16); Blood Urea Nitrogen 14 mg/dL (8-24); CO2, Blood 32 mmol/L (21-32); Calcium, Blood 8.4 mg/dL (8.5-10.1); Chloride, Blood 97 mmol/L (98-108); Creatinine, Blood 2.81 mg/dL (0.40-1.00); Glomerular Filtration Rate 18 (60-); Glucose, Blood 100 mg/dL (70-99); Magnesium, Blood 2.1 mg/dL (1.6-2.4); Phosphorus, Blood 2.3 mg/dL (2.5-4.9); Sodium, Blood 136 mmol/L (136-145)
--- NOTE | 2020-03-08 05:31 | NUR ---
CALLED HOSPITALIST TWICE TELEMETRY INFORMED ME PT IS GOING IN AND OUT OF AFIB AND A 4 SECOND PAUSE ( STATED IN PREVIOUS NOTE). TELEMETRY THEN CALLED ME BACK TO INFORM ME THE PT EXPERIENCING A 6 SECOND PAUSE. I CALLED THE HOSPITALIST AND SHE ORDERED A CARDIOLOGY CONSULT, WHICH SHE MUST CALL IN DUE TO NEW POLICIES. INFORMED BY PCU THAT THIS PT HAD EXPERIENCED 8- SIX SECOND PAUSES IN 30 MINUTES. I CALLED THE HOSPITALIST BACK AND SHE ORDERED THE PT TRANSFERED TO PCU.
--- NOTE | 2020-03-08 05:49 | NUR ---
PT TRANSFERED TO PCU REPORT CALLED TO PCU NURSE GRISELDA. PERSONAL POSSESSIONS GATHERED AND SENT WITH PT. INFORMED GRISELDA TO PASS IT ALONG TO DAY SHIFT TO INFORM THE PT'S OF TRANSFER.
--- NOTE | 2020-03-08 06:23 | NUR ---
PT ARRIVAL PT IN ROOM SETTLED INTO BED. PT APPEARS 100% ASYPMTOMATIC OF PAUSES ON TELE. PLEASENT AFFECT. REPS EVEN UNLABORED ON RA W/ SATS >92%. PT REPORTS SOME CONFUSION AT TIMES. BED ALARM IS ON. CALL LIGHT GIVEN. PT EDUCATED ON USING CALL LIGHT BEFORE GETTING OUT OF BED.
--- NOTE | 2020-03-08 08:26 | NUR ---
DR MARCUS PAGEDrew
--- NOTE | 2020-03-08 08:31 | NUR ---
SPOKE WITH DR MARCUS, NO NEW ORDERS EXPECT NPO ORDERS
--- NOTE | 2020-03-08 09:47 | NUR ---
SPOUSE MARK IS CALLED TO COME FROM [facility] TO SIGN CONSENT FORMS FOR PACEMAKER PLACEMENT. PT IS UPDATED THAT SHE WILL BE GOING FOR PACEMAKER PLACEMENT AT 1300 TODAY
[2020-03-08 10:06] LABS: International Normalized Ratio 1.05; Prothrombin Time Results 11.2 Sec (9.7-11.5)
[2020-03-08 13:22] LABS: Vancomycin, Random 17.9 ug/mL
--- NOTE | 2020-03-08 15:00 | NUR ---
PT TO HEART CENTER
--- NOTE | 2020-03-08 18:45 | NUR ---
shift note PT HAS RESTED WELL IN BED WO CP OR SOB T/O THE SHIFT TODAY. PT DID HAVE NUMEROUS PAUSES THAT LASTED 3-7 SECONDS EACH, DR MARCUS WAS NOTIFIED THIS AM. PT REMAINED A-SYMPTOMATIC T/O THESE EPISODES. PT WITH GRANDIOSE CLAIMS T/O THE DAY OF SELF DIAGNOSING OF "PETITE MAL SEIZURES" SHE CAN NOT RECALL THE LAST 40 DAYS. PT HAS ALSO RECENTLY DIAGNOSED SELF WITH BRAIN TUMOR PER S/O. PT REMAINS IN HEART CENTER AT THIS TIME FOR PACEMAKER PLACEMENT
--- NOTE | 2020-03-08 22:42 | NUR ---
ASSUMED CARE OF PATIENT AT APPROXIMATELY 1910 FROM ANGELI Britt RN. PATIENT ARRIVED BACK FROM HEART CENTER AT SHIFT CHANGE ON PCU STRETCHER. PATIENT DROWSY; CONFUSED AT TIMES; ALERT TO SELF, LOCATION AND EVENT. PATIENT EDUCATED ON POST PACEMAKER RESTRICTIONS OF ARM; SLING PLACED TO LEFT ARM PER ORDER. PATIENT DENIES PAIN, NUMNBESS, TINGLING, DIZZINESS OR NAUSEA. PG TO JUANJO S/L. NSR TO AFLUTTER TO PACED ON TELE; PACEMAKER TO LCW; OXYGEN SATURATION ABOVE 90% ON ROOM AIR WHILE AWAKE; DIPPED TO 89% WHILE SLEEPING; 1LPM VIA NC PLACED. URINARY CATH DRAINING DENILSON COLORED URINE; PERMCATH TO RCW. PATIENT CURRENTLY RESTING IN BED; CALL LIGHT IN REACH; BED IN LOWEST POSISTION; BED ALARM ON; WILL CONTINUE TO MONITOR AND ASSESS UNTIL END OF SHIFT.
[2020-03-09 04:49] LABS: Anion Gap Unable to Calculate mmol/L (6-16); Bun/Creatinine Ratio Unable to Calculate (12.0-20.0); Glomerular Filtration Rate Unable to Calculate (60-)
[2020-03-09 04:52] LABS: Hemoglobin 10.9 g/dL (11.5-16.0)
[2020-03-09 04:53] LABS: Magnesium, Blood 2.1 mg/dL (1.6-2.4)
[2020-03-09 04:56] LABS: Albumin, Blood 2.7 g/dL (3.4-5.0); Anion Gap 7 mmol/L (6-16); Blood Urea Nitrogen 20 mg/dL (8-24); Bun/Creatinine Ratio 5.7 (12.0-20.0); CO2, Blood 33 mmol/L (21-32); Calcium, Blood 8.8 mg/dL (8.5-10.1); Chloride, Blood 97 mmol/L (98-108); Creatinine, Blood 3.52 mg/dL (0.40-1.00); Glomerular Filtration Rate 14 (60-); Glucose, Blood 116 mg/dL (70-99); Phosphorus, Blood 3.3 mg/dL (2.5-4.9); Potassium, Blood 3.3 mmol/L (3.5-5.5); Sodium, Blood 137 mmol/L (136-145)
--- NOTE | 2020-03-09 05:43 | NUR ---
PATIENT REPORTS SHE MANAGES HER MEDICATIONS AT HOME AND MAY NEED ASSITANCE WITH HOME HEALTH WHEN SHE GETS DISCHARGED; REPORTS SHE COULD NOT REMEMBER TWO WEEKS OF HER LIFE RECENTLY; MORE AND MORE CONFUSION; REPORTS SHE MAY NEED TO SEE NEUROLOGIST. NO ACUTE CHANGES TO REPORT. PATIENT SLEPT ABOUT NINE HOURS. WILL CONTINUE TO MONITOR AND ASSESS UNTIL END OF SHIFT.
[2020-03-09] MEDS ORDERED: INSULANPEN SC (15:44)
--- NOTE | 2020-03-09 17:52 | NUR ---
SHIFT SUMMARY: PT HEMODIALYSIS DONE @0900A AND WAS DONE AROUND 1230P. PT'S VITALS STABLE POST DIALYSIS. IV ABO DONE AND GIVEN WAS ALSO GIVEN 10MEQ K IV PER DR RODRIGUEZ GIVEN AFTER DIALYSIS. LUNGS CLEAR DIMINISHED ON THE BASES SATS ABOVE 90% ON ROOMAIR. CHEST XRAY DONE SHOWS NORMAL PLACEMENT OF PACEMAKER. 1PA TO FOR TRANSFER. PT DISCHARGED TO HOME TODAY, PACEMAKER DRESSING WAS CHANGED INCISION WITH STERI-STRIPS INTACT, NO DRAINAGE BRUISING AROUND THE ARMPIT AREA, DRY DRESSING IN PLACE. LEFT ARM SLING ON FOR LEFT ARM PRECAUTION POST PACEMAKER PLACEMENT. DR HARDWICK WAS CALLED TO GIVE PT CLEARANCE TO DISCHARGE, CLEARANCE GIVEN VIA PHONE LONG CHEST XRAY SHOWS NORMAL PLACEMENT OF PACER AND INCISION SITE CDI. FOLER CATHETER WAS REMOVED WELL, PT WAS UNABLE TO VOID MUCH SINCE PT HAD DIALYSIS THIS AM. DISCHARGE INSTRUCTION AND FOLLOW-UP APPOINTMENTS DISCLOSED WITH PT WELL MEDICATION INSTRUCTION. PT DISCHARGED BY 16:30P DIALYSIS THIS AM
== END 2020-03-09 16:49 | disposition home or self-care (01) | DRG 242 ==
LOC: ER 05:59 → ICUW 06:00 → PCU 03-06 14:43 → MEDS 03-07 15:55 → PCU 03-08 05:47
PROVIDERS: Emergency Medicine; Internal Medicine; Internal Medicine Cardiovascular Disease; Internal Medicine Nephrology; Nurse Practitioner Acute Care; Pharmacist; ADMIT Internal Medicine
PROC: 0JH604Z Insertion of Pacemaker, Single Chamber into Chest Subcutaneous Tissue and Fascia, Open Approach (ICD-10-PCS; principal; 2020-03-08)
PROC: 02HK3JZ Insertion of Pacemaker Lead into Right Ventricle, Percutaneous Approach (ICD-10-PCS; 2020-03-08)
DX: I49.5 Sick sinus syndrome (principal); N18.6 End stage renal disease; J96.01 Acute respiratory failure with hypoxia; G92 Toxic encephalopathy; I12.0 Hypertensive chronic kidney disease with stage 5 chronic kidney disease or end stage renal disease; N25.81 Secondary hyperparathyroidism of renal origin; E87.1 Hypo-osmolality and hyponatremia; I48.21 Permanent atrial fibrillation; Z87.891 Personal history of nicotine dependence; Z99.2 Dependence on renal dialysis; E11.22 Type 2 diabetes mellitus with diabetic chronic kidney disease; I95.9 Hypotension, unspecified; T68.XXXA Hypothermia, initial encounter; E11.319 Type 2 diabetes mellitus with unspecified diabetic retinopathy without macular edema; E78.5 Hyperlipidemia, unspecified; E66.9 Obesity, unspecified; E11.65 Type 2 diabetes mellitus with hyperglycemia; I35.0 Nonrheumatic aortic (valve) stenosis; E83.39 Other disorders of phosphorus metabolism; T46.1X5A Adverse effect of calcium-channel blockers, initial encounter; E87.6 Hypokalemia; Y92.9 Unspecified place or not applicable; T46.2X5A Adverse effect of other antidysrhythmic drugs, initial encounter; T44.7X5A Adverse effect of beta-adrenoreceptor antagonists, initial encounter; T50.2X5A Adverse effect of carbonic-anhydrase inhibitors, benzothiadiazides and other diuretics, initial encounter; Z68.35 Body mass index [BMI] 35.0-35.9, adult; Z79.4 Long term (current) use of insulin
CPT/HCPCS: 0099U; 33207; 33227; 36415; 36430; 36569; 51702; 70450; 71045; 71046; 80048; 80053; 80069; 80202; 81001; 82803; 82947; 83735; 84100; 84145; 84439; 84443; 84484; 85014; 85018; 85025; 85610; 86850; 86900; 86901; 86923; 87040; 87086; 93005; 93010; 93306; 96361; 96365; 96367; 96368; 96372; 96375; 96376; 99152; 99153; 99285-25; A9270; A9270-GY; C1751; C1769; C1786; C1898; G0378; J0461; J0610; J0690; J0696; J0881; J1265; J1610; J1644; J1815; J2250; J2405; J2550; J3010; J3370; J3480; J7030; J7040; J7050; J7060; P9016